=== PATIENT | male | born 1960 | race Caucasian/White ===

== ENCOUNTER 2021-07-15 06:37 | Outpatient (CLI) | payer BC, SELFPAY ==
--- NOTE | ~2021-07-15 | MR_ITS ---
EXAMINATION: MR pelvis wo/w con DATE: 07/15/2021 08:18 INDICATION: Malignant neoplasm of the prostate TECHNIQUE: Magnetic resonance imaging (MRI) of the pelvis was performed without and with 20 mL Multih ance intravenous contrast. Fullfield sequences of the pelvis included axial and coronal T2-weighted S S FSE, axial, sagittal and coronal 2D FIESTA, axial 2D FIESTA FS, axial SSFSE-IR SNEHA, axial dual-echo T1-weighted FSPGR, axial and coronal T1 weighted LAVA, 3D axial T2 Cube, axial diffusion-weighted SE with apparent diffusion coefficient (ADC) maps. Postcontrast sequences included a time course axial T1-weighted LAVA and sagittal and coronal T1-weighted LAVA. COMPARISON: None. FINDINGS: Postoperative change of prior prostatectomy with cone-shaped contour to the base of the bladder exten ding into the prostatectomy defect with no significant residual prostatic tissue appreciated. Bladder is otherwise normal. Small bilateral obturator peripherally enhancing fluid collections without surr ounding inflammatory stranding measuring 4.1 x 1.3 x 1.9 cm on the right and 2.1 x 0.8 x 1.7 cm on th e left likely representing residual seromas at the site of bilateral pelvic lymph node dissections. M oderate-sized bilateral fat-containing inguinal hernias which extend to the base of the scrotum. Visu alized portions of the bowels as well as the lower poles of the kidneys are unremarkable. No patholog ically enlarged or abdominal, pelvic or inguinal lymphadenopathy. Mild lumbar spondylosis. Bone marro w signal is normal throughout with no suspicious bone lesions. IMPRESSION: 1. Postoperative changes consistent with prior prostatectomy and with small bilateral obturator locul ated fluid collections most consistent with seromas related to bilateral pelvic lymph node dissection . No evident residual, recurrent or metastatic disease. 2. Bilateral fat-containing inguinal hernias. Reviewed, dictated and finalized at location A. [facility] [employer] IMPRESSION: 1. Postoperative changes consistent with prior prostatectomy and with small tri ateral obturator loculated fluid collections most consistent with seromas relat ed to bilateral pelvic lymph node dissection. No evident residual, recurrent or metastatic disease. 2. Bilateral fat-containing inguinal hernias.
[2021-07-15 07:21] LABS: Estimated Glomerular Filt Rate > 60
== END 2021-07-15 06:38 | disposition home or self-care (01) ==
LOC: ANHIMG 06:45
PROVIDERS: PCP Family Medicine; Visit Provider Radiology Radiation Oncology
DX: C61 Malignant neoplasm of prostate (principal); Z51.0 Encounter for antineoplastic radiation therapy; Z90.79 Acquired absence of other genital organ(s); K40.20 Bilateral inguinal hernia, without obstruction or gangrene, not specified as recurrent
CPT/HCPCS: 72197; A9577

== ENCOUNTER 2023-04-13 11:56 | Outpatient (CLI) | payer BC, SELFPAY ==
--- NOTE | ~2023-04-13 | PE_ITS ---
EXAMINATION: PET_PETPSMAST_PT DATE: 04/13/2023 14:37 INDICATION: Malignant neoplasm of the prostate TECHNIQUE: 8.4 mCi of pipflufolastat F-18 (18-F-DCFPyL) was administered i.v. Low dose computed celina graphy (CT) images were acquired from the base of the brain to the base of the brain to the proximal thighs for attenuation correction and anatomic localization. Positron emission tomography (PET) image s were acquired in the same distribution beginning 108 minutes after injection. Images including fuse d PET/CT images were reconstructed in axial, coronal, and sagittal planes. Automated exposure control technique was employed. The dose-length product was 890.58mGy-cm. COMPARISON: None FINDINGS: Head/neck: Typical pattern of symmetric physiologic increased activity in the lacrimal, parotid and submandibula r glands as well as along the mucosa of the nasal and oral cavities, the edson-, naso- and hypopharynx, the glottis and esophagus. There also symmetric tiny foci of mild physiologic uptake such with neura l ganglia at the cervical neural foramina. Approximately 1 cm focus of mild uptake with maximal SUV o f 5.7 and without radiologic correlate at the right thyroid lobe. No pathologically enlarged cervical lymphadenopathy or suspicious foci of increased uptake in the visualized head or neck. Chest: Mild dependent atelectasis in both lungs. No suspicious pulmonary nodules, pneumonia, pulmonary edema or other pulmonary infiltrates. No pleural effusion. Heart size is normal. No pericardial effusion. Atherosclerotic coronary artery calcification. Thoracic aorta is normal in caliber. No pathologically enlarged or PSMA avid thoracic lymphadenopathy. Mild bilateral gynecomastia. Abdomen/pelvis/proximal thighs: Physiologic renal accumulation and excretion of activity in the kidneys, bladder and along portions o f ureters. Photopenic 5.0 cm left renal cyst. Postoperative change of prior prostatectomy. No soft ti ssue nodules or increased PSMA activity at the prostatectomy bed aside from the activity in the urine to suggest residual/locally recurrent disease.. Normal degree and slightly heterogenous pattern of i ncreased uptake throughout the liver and spleen without radiologic correlate or dominant PSMA avid le stephen. The gallbladder, pancreas and bilateral adrenal glands are normal. Moderate uptake scattered th roughout the bowels with typical duodenal and proximal jejunal predominance and without radiologic co rrelate, also likely physiologic. Normal appendix. There is increased PSMA uptake associated with a c luster of 3 normal-sized left periaortic lymph nodes the largest measuring 11 x 5 mm and with maximal SUV of 11.8. No pathologically enlarged or abnormally PSMA avid lymphadenopathy in the pelvis or ing uinal regions. Small fat-containing left inguinal hernia. Musculoskeletal: No suspicious lytic, blastic or abnormally PSMA avid bone lesions to suggest osseous metastatic disea se. IMPRESSION: 1. 3 normal-sized but abnormally PSMA avid left para-aortic lymph nodes consistent with metastatic pr ostate cancer. 2. Small focus of mild uptake in the right thyroid lobe. Recommend further evaluation with ultrasound as primary thyroid cancers have in some cases been shown to demonstrate increased PSMA activity. Reviewed, dictated and finalized at location A. IMPRESSION: 1. 3 normal-sized but abnormally PSMA avid left para-aortic lymph nodes consist ent with metastatic prostate cancer. 2. Small focus of mild uptake in the right thyroid lobe. Recommend further eval uation with ultrasound as primary thyroid cancers have in some cases been shown to demonstrate increased PSMA activity.
== END 2023-04-13 11:57 | disposition home or self-care (01) ==
PROVIDERS: PCP Family Medicine; Visit Provider Urology
DX: C61 Malignant neoplasm of prostate (principal); R59.0 Localized enlarged lymph nodes
CPT/HCPCS: 78815; A9595

== ENCOUNTER 2023-04-26 08:47 | Outpatient (CLI) | payer BC, SELFPAY ==
--- NOTE | ~2023-04-26 | US_ITS ---
EXAMINATION: US thyroid DATE: 04/26/2023 09:25 INDICATION: Hypothyroidism. TECHNIQUE: Multiple ultrasound images of the thyroid were obtained. COMPARISON: None. FINDINGS: The right thyroid lobe measures 4.2 x 1.6 x 1.8 cm. The left thyroid lobe measures 3.6 x 1.6 x 0.9 c m. The thyroid is diffusely heterogeneous and hypoechoic with increased vascularity. In the right th yroid lobe, there is a 10 mm solid, isoechoic, wider than tall nodule with smooth margin without echo genic foci (TI-RADS TR3). In the right thyroid lobe, there is a 1.2 cm solid, isoechoic, wider than t all nodule with smooth margin without echogenic foci (TR3). IMPRESSION: 1. Heterogeneous, hypervascular thyroid, consistent with chronic lymphocytic ([place]) thyroiditis. 2. Small thyroid nodules, likely not clinically significant. No follow-up is needed. Reviewed, dictated and finalized at location E. IMPRESSION: 1. Heterogeneous, hypervascular thyroid, consistent with chronic lymphocytic (H ashimoto) thyroiditis. 2. Small thyroid nodules, likely not clinically significant. No follow-up is ne eded.
== END 2023-04-26 08:48 | disposition home or self-care (01) ==
LOC: ANHIMG 08:52
PROVIDERS: PCP Family Medicine; Visit Provider Family Medicine
DX: E03.9 Hypothyroidism, unspecified (principal); R93.89 Abnormal findings on diagnostic imaging of other specified body structures; E04.2 Nontoxic multinodular goiter
CPT/HCPCS: 76536